=== PATIENT | female | born 2000 | race Caucasian/White ===

== ENCOUNTER 2018-03-19 17:34 | Emergency (ER) | payer BC ==
[2018-03-19 17:39] VITALS: BP 136/91
--- NOTE | 2018-03-19 17:56 | EDPHY ---
H & P Smoking Status: Never smoked Time Seen by Provider: 03/19/18 17:55 HPI/ROS: CLINICAL IMPRESSION: Mild cellulitis, left inner foot ASSESSMENT/PLAN: Daisy Allen is a 17-year-old female with a significant history of attention deficit hyperactivity disorder who presents for concerns of wound infection after self tattoo 5 days prior. Patient is afebrile and not toxic appearing, no acute distress. Physical exam reveals new, black ink tattoo left inner foot inferior to the medial malleolus with surrounding hyperemia. Patient's vital signs were reviewed and she was noted to mildly tachycardic on arrival at a rate of 108 beats per minute, she is on Vyvanse and took this just prior to arrival. She has had no constitutional symptoms, I do not suspect sepsis, serious bacterial illness or systemic infection. There was no evidence of abscess, necrotizing skin infection or deep space infection. She will continue local wound care, warm compress and will apply mupirocin ointment. In light of mild surrounding cellulitis will initiate antibiotic therapy today. She is well established with her PCP and will call to schedule an appointment for repeat exam and wound check when she returns to [place] in the next several days. Return precautions discussed- she will return for fever, redness, swelling, warmth, or streaking around the wound, new lesions, extremity swelling , pain out of proportion or for any other new, worsening or worrisome symptoms. Patient verbalizes understanding and she is in agreement with plan. Case discussed with and patient seen by Dr. Chairez. DIFFERENTIAL DX: Cellulitis, abscess, necrotizing skin infection, deep space infection ED COURSE: 6:10 p.m.: Discussed with Dr. Chairez. CHIEF COMPLAINT: Possible skin infection around new tattoo HPI: Daisy Allen is a 17-year-old female with a significant medical history of attention deficit hyperactivity disorder who presents for concerns of wound infection after self tattooing 5 days prior. Patient reports she decided that she wanted to talk to herself, she cleansed her foot with antibacterial soap, used a thumb tack for which she uses a flame to sterilize for approximately a minute and then tapped in black ink to form a tattoo. Patient reports mild redness along the inclines that has been present since she gave herself her tattoo, feels that is mildly worsening. She reports mild tenderness to palpation, there has been no drainage. She denies any fevers, chills, nausea, vomiting or other systemic symptoms. She also denies any numbness or tingling of the foot or toes. She has no history of MRSA infections and she is up-to- date on her vaccinations. PAST MEDICAL HISTORY: Attention deficit hyperactivity disorder Pertinent Past Surgical History: Noncontributory Family History: Noncontributory Social History: Social EtOH, marijuana, denies smoking. ROS: A full 10 point review of systems was negative except for those mentioned in HPI. PHYSICAL EXAM: General Appearance: Alert, oriented, appropriate, cooperative, NAD, well hydrated, non-toxic appearing, VSS, no hypoxia. HEENT: TMs are clear bilaterally no perforation or FB, no injection, no evidence of serous or mucopurulent otitis. Oropharynx clear is no erythema or exudates, no tonsillar hypertrophy or asymmetry. Dentition without abnormality. Eyes: PERRLA, no acute vision change, nystagmus, swelling, discharge, pain or photosensitivity. Conjunctiva pink, no pallor or injection Neck: Supple, nontender, no lymphadenopathy, no midline pain, FROM, no meningismus. Respiratory: There are no retractions, lungs are clear to auscultation. Cardiac: Tachycardic at 108 bpm, regular rhythm, no murmurs or gallops. Gastrointestinal: Abdomen is soft, nontender, bowel sounds normal, no masses/ hernia, no rigidity, guarding or focal peritoneal findings. Skin: New, black ink tattoo left inner foot inferior to the medial malleolus with surrounding hyperemia. This is in the shape of a smiley face. Scabbing at sites of inc, no drainage. Warm, dry, no rashes, no nodules on palpation. MEDICAL DECISION MAKING: Patient was seen with Dr. Chairez. Diagnosis: Mild cellulitis. Summary: See Assessment and Plan for summary of ED visit Clinical lab tests: NA. Independent visualization of images, tracing, or specimens: NA Decision to obtain medical records or history from someone other than the patient: No Review / Summarize previous medical records: No Discussed patient with another provider: Yes Dr. Chairez Patient Progress: Stable, discharged home. (Carrie Mondragon) Constitutional: Initial Vital Signs Temperature (C) 36.2 C 03/19/18 17:36 Heart Rate 108 H 03/19/18 17:36 Respiratory Rate 16 03/19/18 17:36 Blood Pressure 136/91 H 03/19/18 17:36 O2 Sat (%) 98 03/19/18 17:36 O2 Delivery Mode Room Air Allergies/Adverse Reactions: No Known Allergies Allergy (Unverified 03/19/18 17:35) Home Medications: Medication Instructions Recorded Cephalexin [Keflex (*)] 500 mg PO QID #20 cap 03/19/18 MDM/Departure - [facility] ED Course/Re-evaluation: This pt was seen an examined by me. Erythema and tenderness of recent ankle tatoo, approx 1.5cm in diameter. Eythema does not extend past small tatoo. I agree with the assessment and plan. (Erin Chairez) - Depart Disposition: Home, Routine, Self-Care Clinical Impression: Cellulitis of foot without toes Condition: Good Instructions: Cellulitis (ED) Additional Instructions: DISCHARGE INSTRUCTIONS FROM YOUR DOCTOR Thank you for visiting our emergency department today. Please keep in mind that discharge from the emergency department does not mean that there is nothing wrong - it simply means that we have not identified an emergency condition that requires further evaluation or treatment in the hospital. You should always plan to follow up with primary care for re-evaluation of your condition in the next 2-3 days. If you have been referred to a specialist, please call as soon as possible (today or tomorrow) to schedule your follow up appointment at the appropriate time. Cleanse the area with regular soap and water at least twice per day. Apply warm compresses several times per day. Apply mupirocin ointment after it is clean and keep covered with a Band-Aid. You have been prescribed antibiotics, please continue Keflex for the next 7 days. Antibiotics can cause diarrhea, I recommend you taking a probiotic while taking antibiotics. Please return for concerns of increased infection, fever, swelling or for any other concerning symptom People present with illnesses and injuries in different ways, and it is always possible that we have missed something. You may always return for re-evaluation if symptoms worsen or if they are not improving or if you develop new/different symptoms. Again, thank you for choosing our emergency department. We hope that you feel better. Prescriptions: Cephalexin [Keflex (*)] 500 mg PO QID #20 cap Referrals: Julio Montoya [place] - As per Instructions
== END 2018-03-19 18:33 | disposition home or self-care (01) ==
DX: L03.116 Cellulitis of left lower limb (principal)